=== PATIENT | male | born 1980 | race Two or more races ===

== ENCOUNTER 2024-09-26 14:48 | Inpatient (IN) | payer BC, SELFPAY ==
[2024-09-26] VITALS (15 sets, daily range): BP systolic 181–205; BP diastolic 104–138; PULSE 62–82; RESP 12–22; TEMP 36.3–37.3; O2SAT 91–100; BMI 41.8
--- NOTE | 2024-09-26 15:00 | PC.NURSE ---
PATIENT ARRIVED AT TRIAGE DUE TO NAUSEA AND VOMITING, PATIENT WAS SENT BY [facility] FOR HYPERTENSION. PATIENT WITH COMPLAINT OF DIZZINESS WITH MOVEMENT. PATIENT SITTING IN WAITING ROOM WITH EYES CLOSED DUE TO VOMITING. PATIENT ABLE TO WALK TO TRIAGE ROOM, I CONTACTED DR. PIZANO FOR STROKE EVALUATION. PER DR. PIZANO PATIENT DID NOT MEET STROKE CRITERIA. MEDICATION FOR DIZZINESS WAS PRESCRIBED. PATIENT WAS LEFT IN TRIAGE ROOM WITH WHILE MEDICATION WAS ORDERED. TRIAGE NURSE COULD HEAR PATIENT VOMITING AND ALERTED CHARGE NURSE THAT PATIENTS BP WAS 208/138 AND PATIENT WAS MOVED TO ROOM 1.
--- NOTE | 2024-09-26 15:02 | PD.EDDIZZY ---
ED Dizzyness RME/HPI General Chief Complaint: Dizziness Stated Complaint: DIZZINESS WITH VOMITING Time Seen by Provider: 09/26/24 15:02 Arrival date/time: 09/26/24 14:48 RME / HPI RME / HPI Narrative: 44 year old male with a history of hypertension, currently noncompliant with medications, presents to the ED with dizziness that began yesterday afternoon. He describes the sensation as room spinning, accompanied by nausea and vomiting. Symptoms are worsened with head movement, standing, and walking, and are slightly relieved by closing his eyes. He was evaluated at his clinic earlier today and advised to come to the ED for further evaluation. He denies any recent illness, upper respiratory symptoms, or history of motion sickness. No prior similar episodes reported. Patient reports missing doses of his Losartan due to life . States he took his Losartan yesterday evening and this morning. Additionally reported taking Tylenol and antacids today. Related Data Home Medications ?Medication ?Instructions ?Recorded ?Confirmed losartan 100 mg tablet 100 mg PO DAILY 09/26/24 09/26/24 Allergies Allergy/AdvReac Type Severity Reaction Status Date / Time No Known Allergies Allergy Verified 09/26/24 14:51 Review of Systems Review of Systems Narrative Review of Systems: Gen: No fever, no chills, no weight loss EYES: No discharge, no visual changes, no pain HEENT: No ear pain, no congestion, no sore throat PULM: no shortness of breath, no cough, no congestion CV: No chest pain, no palpitations, no chest tightness GI: +nausea, +vomiting, no diarrhea, no pain, no constipation : No frequency, no urgency,? no dysuria Musc/skel: No joint pain, no back pain Skin: No rash, no ecchymosis, no lesions Neuro: No weakness, no headache, +dizziness Past Medical History Past Medical History CARDIAC: Negative Congestive Heart Failure RESPIRATORY: Negative Chronic Obstructive Pulmonary Disease (COPD) GENITOURINARY: Negative Renal Disease ENDOCRINE: Negative Diabetes Mellitus Type 1 or Diabetes Mellitus Type 2 Social History SMOKING STATUS: Never smoker ED Exam Narrative Physical exam: GENERAL APPEARANCE: AxOx4, no obvious distress, nontoxic appearing HEENT: NC, AT. MMM. Possible sligth sustained rotary nystagmus when looking to the left, dysmetria with looking to the left, sustained nystagmus with looking upwards without worsening dizziness, clear conjunctiva, oropharynx clear. NECK: Supple without lymphadenopathy. No stiffness or restricted ROM. HEART: Normal rate and regular rhythm, normal S1/S1, no m/r/g LUNGS: CTAB, moving air well. No crackles or wheezes are heard. ABDOMEN: Soft, nontender, nondistended with good bowel sounds heard. BACK: No midline C/T/L spine pain or deformity, No CVAT, no obvious deformity. EXTREMITIES: Without cyanosis, clubbing or edema. MUSCULOSKELETAL: FROM of all major joints, no chest tenderness NEUROLOGICAL: Alert and oriented, moving all 4 extremities. CN not formally tested but appear grossly intact. Cannot fully assess gait due to dizziness. Skin: Warm and dry without any rash. Course Quality Measures none Orders Category Date Time Status Admit to Inpatient Status Routine Admission 09/26/24 19:32 Active Patient Condition Routine Admission 09/26/24 19:32 Ordered COVID-19 Screening Questionnaire NOW Care 09/26/24 17:59 Active Decision to Admit X1 Care 09/26/24 17:59 Completed EKG (ED ONLY) *Do not use* NOW Care 09/26/24 16:30 Completed Notify provider NEEDED Care 09/26/24 19:[address] angio stroke protocol Stat Exams 09/26/24 16:[address] head/brain wo con Stat Exams 09/26/24 16:29 Completed EKG (ED Only) Stat Exams 09/26/24 16:30 Draft CBC Stat Lab 09/26/24 16:45 Completed CMP [Comprehensive Metabolic Panel] Stat Lab 09/26/24 16:45 Completed Drug Screen,Urine Stat Lab 09/26/24 17:40 Completed Troponin I Stat Lab 09/26/24 16:45 Completed LORazepam [Ativan Inj] Med 09/26/24 16:30 Discontinued 1 mg IVP X1 ONE Meclizine HCl [Antivert] Med 09/26/24 15:02 Discontinued 50 mg PO X1 ONE Ondansetron Odt [Zofran Odt] Med 09/26/24 16:17 Discontinued 4 mg PO X1 ONE Code Status Routine Oth 09/26/24 19:27 Ordered Reevaluation(s) Reevaluation #1: Patient received 50mg Meclizine at 15:37. At this time states he still feels dizzy. No headache at this time. Plan for CT head and CT angio. Time: 16:25 Reevaluation #2: Patient is still complaining dizziness after the Ativan. Time: 17:50 Vital Signs Vital signs: Vital Signs Temperature 99.1 F 09/26/24 15:10 Pulse Rate 70 09/26/24 15:10 Respiratory Rate 20 09/26/24 15:10 Blood Pressure 204/138 H 09/26/24 15:10 Pulse Oximetry (%) 97 09/26/24 15:10 Oxygen Delivery Method Room Air 09/26/24 15:10 Pulse ox is 97% on room air which is adequate. Dizziness MDM Narrative MDM Narrative:: Mr. Kwok presents to the emergency department with positional room spinning dizziness with associated symptoms that are more consistent with a peripheral vertigo. However exam shows a different story where he has some ocular dysmetria looking to the left with briefly sustained rotary nystagmus. He does have vertical nystagmus when looking upwards. Of curiosity neither of these movements nor nystagmus exacerbate his dizziness. As a trial he for peripheral vertigo he was given meclizine full dose here in the emergency department with little to no improvement in his dizziness. At this point central vertigo becomes a little bit more concerning and workup was initiated for a possible posterior cerebellar CVA. Last known well was approximately 24 hours ago. He is out of the window, no stroke alert was needed. I do feel he needs a stroke workup. As movements exacerbate his dizziness significantly, he was also given Ativan in order to tolerate the CT. On reassessment after Ativan he notes slight improvement of his dizziness he is able to keep his eyes open now. On passive gaze there is no nystagmus, however is noted when he is intently looking at you he does have some brief nonsustained rotary nystagmus. He was able to ambulate to room 1 for his workup with a unsteady, wide-based gait. CT scan of the head was done to assess for acute bleed, which was negative. CT angio for his vertebral circulation was done which shows no dissection, no LVO. He was given full dose aspirin, and hospitalist team was consulted for possible admission for stroke workup and MRI. Carin Stevens am scribing for and in the presence of Dr. Gomes. Patient data External records reviewed:: [facility] previous records (I reviewed ED visit on 08/16/2022 ) Clinical information provided by:: patient Social determinants that could affect healthcare access:: none Patient has the following chronic illnesses:: HTN with medication noncompliance How is presenting disease/condition affected by chronic disease/condition?: exacerbated by Evaluation data The following diagnostics were reviewed and interpreted by me:: lab results, radiology exam(s) and EKG tracing(s) (EKG 09/26/2024 @ 16:39. Sinus bradycardia, rate 59, LVH, no STEMI. ) Lab and/or radiology exams considered but not ordered:: None Interpretation Summary: Ordering Physician: Austin Gomes MD Date of Service: 09/26/24 Procedure(s): CT head/brain wo con Accession Number(s): [id number] cc: Austin Gomes MD; Andrew Booth MD~ Examination: CT brain head without contrast. 2-D sagittal coronal reconstructions Date and time of exam:September 26, 2024 1655 hours INDICATIONS: Dizziness and vomiting beginning last night CTDI: vol (mGy):61 DLP: (mGycm):1321 Technique: Multiple CT axial sections of the brain have been obtained, 5 mm slice thickness. Contrast has not been administered. 2-D sagittal, coronal reconstructions have been obtained Low dose protocols were performed. One or more of the following dose reduction techniques were used; automated exposure control, adjustment of the mA and/or KV according to patient size, use of iterative reconstruction technique. Findings: No significant ventricular enlargement. Intra-axial or extra-axial hemorrhage density is not seen. No mass effect or midline shift Basal cisterns are not remarkable. Fourth ventricle is midline. Cranial vault intact. Old infarct right cerebellar hemisphere Impression: Negative for acute hemorrhage, mass effect or midline shift If symptoms persist, consider brain MRI MRA without contrast follow-up Dictated By:Andrew Booth MD Signed By:<Electronically signed by Andrew Booth MD in [place]>09/26/24 1712 Ordering Physician: Austin Gomes MD Date of Service: 09/26/24 Procedure(s): CT angio stroke protocol Accession Number(s): [id number] cc: Austin Gomes MD; Andrew Booth MD~ Examination: CTA carotids with intravenous contrast CTA brain, head with intravenous contrast. 2-D sagittal, coronal reconstructions. 3-D reconstructions. Exam date and time: September 26, 2024 1657 hours INDICATIONS: Dizziness and vomiting beginning last night CTDI: vol (mGy) 52 DLP: (mGycm) 548 Technique: Multiple CTA axial brain, head carotid images post intravenous contrast injection 100 cc, Isovue-370. 2-D sagittal, coronal reconstructions. 3-D reconstructions, 3-D post processing including vascular maximum intensity projection images. Low dose protocols were performed. One or more of the following dose reduction techniques were used; automated exposure control, adjustment of the mA and/or KV according to patient size, use of iterative reconstruction technique. Findings: No significant common carotid carotid bifurcation or internal carotid artery stenoses Dominant vertebral artery in the neck no significant stenoses No cerebral artery vessel arterial occlusions or thrombus IMPRESSION: No significant neck arterial stenoses No cerebral large vessel arterial occlusions or thrombus Dictated By:Andrew Booth MD Signed By:<Electronically signed by Andrew Booth MD in [place]>09/26/24 1717 Medications / Prescriptions Medications or Prescriptions considered but not ordered:: None Medication administrations:: Medication Administration History Acetaminophen (Acetaminophen 325 Mg Tablet) 650 mg PO Q6H PRN PRN Reason: Fever >101.5 Stop: 10/26/24 19:31 Aspirin (Aspirin Ec 81 Mg Tabec) 81 mg PO QDAY MAYKEL Stop: 10/27/24 08:59 Atorvastatin Calcium (Atorvastatin Calcium 20 Mg Tablet) 80 mg PO HS MAYKEL Stop: 10/26/24 20:59 Last Admin: 09/26/24 20:00 Dose: 80 mg Documented By: WO Sodium Chloride (Ns) 1,000 mls @ 60 mls/hr IV .[id number] MAYKEL Stop: 09/27/24 15:20 Last Admin: 09/26/24 23:48 Dose: 60 mls/hr Documented By: SS Labetalol HCl (Labetalol Inj 5 Mg/Ml Vial 20 Ml) 10 mg IVP Q6H PRN PRN Reason: SBP>220 Stop: 10/26/24 19:44 Meclizine HCl (Meclizine Hcl 25 Mg Tablet) 50 mg PO TID PRN PRN Reason: DIZZINESS Stop: 10/26/24 19:42 Ondansetron HCl (Ondansetron Inj 2 Mg/Ml Inj 2 Ml) 4 mg IVP Q6H PRN; Protocol PRN Reason: NAUSEA OR VOMITING Stop: 10/26/24 19:31 Discontinued Medications Aspirin (Aspirin 325 Mg Tablet) 325 mg PO X1 ONE Stop: 09/26/24 19:38 Last Admin: 09/26/24 19:55 Dose: Not Given Documented By: WO Non-Admin Reason: Discontinued Lorazepam (Lorazepam 2 Mg/Ml Vial) 1 mg IVP X1 ONE Stop: 09/26/24 16:31 Last Admin: 09/26/24 17:43 Dose: 1 mg Documented By: CG Meclizine HCl (Meclizine Hcl 25 Mg Tablet) 50 mg PO X1 ONE Stop: 09/26/24 15:03 Last Admin: 09/26/24 15:37 Dose: 50 mg Documented By: CG Ondansetron HCl (Ondansetron Odt 4 Mg Tabrap) 4 mg PO X1 ONE; Protocol Stop: 09/26/24 16:18 Last Admin: 09/26/24 16:25 Dose: 4 mg Documented By: CG See above Consultations Consultation(s) initiated? (list below): Yes Consultation #1 (Physician, Specialty, Details): I spoke with resident working with Dr. Chaudhry. Discussed patients PMHx, HPI, ED course, exam findings, labs, and radiology results. The hospitalist agree to accept the patient for admission. Time: 17:51 Diagnosis Dizziness Differential Diagnosis: benign paroxysmal positional vertigo, vertebral basilar insufficiency, cerebrovascular accident and transient cerebral ischemia Most likely diagnosis given after review of the tests above:: Ataxia TIA Admission Indicated Admission indicated?: indicated Admission Request Was there a request for admission?: Yes Admission Attestation Admission request attestation: Discussed case with [] from Hospitalist service regarding admission. Discussed patients ED course, exam findings, labs, and radiology results. The Hospitalist [agrees,declines] to accept the patient for admission. Disposition Plan Disposition Plan: Admit Critical Care Time Critical Care Time Critical Care Time: Yes Total Critical Care Time (min.): 35 Attestation: The high probability of sudden, clinically significant deterioration in the patient's condition required the highest level of my preparedness to intervene urgently. The services I provided to this patient were to treat and/or prevent clinically significant deterioration. Services included the following: chart data review, reviewing nursing notes and/or old charts, documentation time, labor relations consultant collaboration regarding findings and treatment options, medication orders and management, direct patient care, vital sign assessments and ordering, interpreting and reviewing diagnostic studies and lab tests. Aggregate critical care time includes only time during which I was engaged in work directly related to the patient's care, as described above, whether at bedside or elsewhere in the Emergency Department. It did not include time spent performing other reported procedures or the services of residents, students, nurses or physician assistants. Discharge Plan Plan Patient Disposition: Admit Acute Care w/in Hospital Problem List Clinical Impression: Ataxia, TIA (transient ischemic attack)
[2024-09-26] MEDS: MECLIZINE HCL 25 MG TABLET 50 MG PO (15:37)
--- NOTE | 2024-09-26 15:38 | PC.NURSE ---
Pt has been noncompliant with HTN meds this past week, was not able to explain why he was noncompliant. Pt given SL Meclizine at this time. Pt continues VERY nauseated. Pt vomited in Triage
[2024-09-26] MEDS: ONDANSETRON ODT 4 MG TABRAP PO (16:25)
--- NOTE | 2024-09-26 16:29 | XR_ITS ---
Examination: CT brain head without contrast. 2-D sagittal coronal reconstructions Date and time of exam:September 26, 2024 1655 hours INDICATIONS: Dizziness and vomiting beginning last night CTDI: vol (mGy):61 DLP: (mGycm):1321 Technique: Multiple CT axial sections of the brain have been obtained, 5 mm slice thickness. Contrast has not been administered. 2-D sagittal, coronal reconstructions have been obtained Low dose protocols were performed. One or more of the following dose reduction techniques were used; automated exposure control, adjustment of the mA and/or KV according to patient size, use of iterative reconstruction technique. Findings: No significant ventricular enlargement. Intra-axial or extra-axial hemorrhage density is not seen. No mass effect or midline shift Basal cisterns are not remarkable. Fourth ventricle is midline. Cranial vault intact. Old infarct right cerebellar hemisphere Impression: Negative for acute hemorrhage, mass effect or midline shift If symptoms persist, consider brain MRI MRA without contrast follow-up
--- NOTE | 2024-09-26 16:30 | XR_ITS ---
Examination: CTA carotids with intravenous contrast CTA brain, head with intravenous contrast. 2-D sagittal, coronal reconstructions. 3-D reconstructions. Exam date and time: September 26, 2024 1657 hours INDICATIONS: Dizziness and vomiting beginning last night CTDI: vol (mGy) 52 DLP: (mGycm) 548 Technique: Multiple CTA axial brain, head carotid images post intravenous contrast injection 100 cc, Isovue-370. 2-D sagittal, coronal reconstructions. 3-D reconstructions, 3-D post processing including vascular maximum intensity projection images. Low dose protocols were performed. One or more of the following dose reduction techniques were used; automated exposure control, adjustment of the mA and/or KV according to patient size, use of iterative reconstruction technique. Findings: No significant common carotid carotid bifurcation or internal carotid artery stenoses Dominant vertebral artery in the neck no significant stenoses No cerebral artery vessel arterial occlusions or thrombus IMPRESSION: No significant neck arterial stenoses No cerebral large vessel arterial occlusions or thrombus
--- NOTE | 2024-09-26 16:30 | EKG_ITS ---
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
[2024-09-26 17:03] LABS: Basophils % (Auto) 0 % (0-2.5); Eosinophils % (Auto) 0 % (0-10); Hematocrit 38.2 % (41.0-53.0); Hemoglobin 11.8 g/dL (13.5-16.0); Immature Granulocytes % (Auto) 0 % (0-0); Immature Granulocytes Auto 0.04 Thou/mm3 (0.00-0.00); Lymphocytes # (Auto) 0.6 Thou/mm3 (1.0-4.8); Lymphocytes % (Auto) 6 % (10-50); Mean Corpuscular HGB Conc 30.9 g/dl (31.0-37.0); Mean Corpuscular Hemoglobin 22.3 pg (25.0-35.0); Mean Corpuscular Volume 72 fL (80-100); Monocytes # (Auto) 0.4 Thou/mm3 (0.0-0.8); Monocytes % (Auto) 4 % (0-12); Neutrophils % (Auto) 90 % (37-80); Nucleated Red Blood Cell % 0 /100 WBC (0); Platelet Count 217 Thou/mm3 (140-440); Red Blood Count 5.29 Miln/mm3 (4.50-5.90); White Blood Count 10.1 Thou/mm3 (3.8-10.6)
[2024-09-26 17:20] LABS: Alanine Aminotransferase 11 U/L (10-49); Albumin, Serum 4.5 gm/dL (3.5-5.0); Albumin/Globulin Ratio 1.6 (1.2-2.2); Alkaline Phosphatase 120 U/L (46-116); Anion Gap 9 (7-16); Aspartate Amino Transferase 21 U/L (0-34); BUN/Creatinine Ratio 9 Ratio (12-20); Bilirubin,Total 0.6 mg/dL (0.3-1.2); Blood Urea Nitrogen 11 mg/dL (9-23); Calcium 9.1 mg/dL (8.3-10.6); Calcium (Corrected) 9.1 mg/dL (8.5-10.1); Carbon Dioxide 29.4 mMol/L (20.0-31.0); Chloride 107 mMol/L (98-107); Creatinine (Component) 1.2 mg/dL (0.6-1.3); Globulin 2.8 gm/dL (2.3-3.5); Glucose 144 mg/dL (74-106); Osmolality,Calculated 291 (275-295); Potassium 4.2 mMol/L (3.4-5.1); Sodium 145 mMol/L (136-145); Total Protein 7.3 gm/dL (5.7-8.2); eGFR > 60 See Note
[2024-09-26] MEDS: LORazepam 2 MG/ML VIAL 1 MG IVP (17:43)
--- NOTE | 2024-09-26 18:11 | PD.RESEVENT ---
Documentation for date of: 09/26/24 Event Note Event Note: Received call for Darwin Kwok, a 44-year-old male with a past medical history of hypertension (noncompliant with medications) who presents with dizziness that started yesterday afternoon that he describes as the room spinning with associated nausea and vomiting. Symptoms exacerbated by head movement, standing, and walking with some relief when closing his eyes. Of note, he was evaluated at his clinic and advised to come to the ED for further evaluation. He has not experienced these symptoms before. While in the ED, patient's initial blood pressure noted to be 204/138, other vital signs stable, and on exam signs of vertical nystagmus observed. CT head and CTA head/neck were ordered for further evaluation that were negative, but in order to lay flat patient was given meclizine 50 mg x1 and lorazepam 1 mg x1 with minimal relief of symptoms. Given sign and symptoms, in-house neurologist was contacted and recommended stroke protocol/work-up but no stroke alert needed given that patient's symptoms started approximately 24 hours ago at this time. However, recommended to allow for permissive hypertension, start IVF, and further evaluate with MRI brain. Patient received loading dose aspirin in ED and at this time neurology recommended holding plavix. Will sign-out to oncoming night team patient case. ----- Plan discussed with attending physician Dr. Isidoro Asher MD PGY-1 Internal Medicine
[2024-09-26 18:19] LABS: Amphetamine/Methamp Scrn,U Negative (Negative); Barbiturate Screen,Urine Negative (Negative); Benzodiazepines Screen,Urine Negative (Negative); Benzoylecgonine Screen, Ur Negative (Negative); Fentanyl Screen,Urine Negative (Negative); Opiate Screen,Urine Negative (Negative); THC Screen,Urine Negative (Negative)
--- NOTE | 2024-09-26 19:37 | ECHO_ITS ---
Transthoracic Echo Report Ht (in): 71 Wt (lb): 300 Exam Location: Echo Lab Status: Emergency Copy Editor: Indications: Procedure Performed: BP: 180 / 109 HR: Technical Quality: Technically Difficult due To Body Habitus- Limited Views MEASUREMENTS (Male / Female) Normal Values 2D ECHO LV Diastolic Diameter PLAX 5.2 cm 4.2 - 5.9 / 3.9 - 5.3 cm LV Systolic Diameter PLAX 3.4 cm IVS Diastolic Thickness 1.5 cm 0.6 - 1.0 / 0.6 - 0.9 cm LVPW Diastolic Thickness 1.4 cm 0.6 - 1.0 / 0.6 - 0.9 cm LV Relative Wall Thickness 0.6 LVOT Diameter 2.4 cm Ascending Aorta Diameter 3.7 cm DOPPLER AV Peak Velocity 141.0 cm/s AV Peak Gradient 8.0 mmHg LVOT Peak Velocity 121.0 cm/s LVOT Peak Gradient 5.9 mmHg AV Area Cont Eq pk 3.9 cm? MV Area PHT 2.6 cm? Mitral E Point Velocity 104.0 cm/s Mitral A Point Velocity 68.9 cm/s Mitral E to A Ratio 1.5 LV E' Lateral Velocity 7.1 cm/s Mitral E to LV E' Lateral Ratio 14.7 LV E' Septal Velocity 5.2 cm/s Mitral E to LV E' Septal Ratio 19.9 PV Peak Velocity 109.0 cm/s PV Peak Gradient 4.8 mmHg FINDINGS Left Ventricle Normal left ventricular size and the wall thickness is moderately increased. The left ventricular systolic function is normal with no obvious regional wall motion abnormalities. Diastolic function can not be reported due to suboptimal acoustic windows. The ejection fraction is visually estimated at 55 %. Right Ventricle The right ventricle not well visualized. Left Atrium The left atrium appears normal. Right Atrium Right atrium is not well visualized. Atrial Septum The interatrial septum appears normal with no evidence of a shunt. Bubble study not performed due to suboptimal acoustic windows. Aorta The aorta is normal by two-dimensional, color flow and Doppler interrogation. Mitral Valve The mitral valve is normal by two-dimensional, color flow and Doppler interrogation. There is no significant mitral valve regurgitation, stenosis or prolapse. Aortic Valve The aortic valve is trileaflet and normal by two-dimensional, color flow and Doppler interrogation. There is no significant aortic valve regurgitation. Tricuspid Valve The tricuspid valve is not well visualized. There is no significant tricuspid valve regurgitation. Pulmonic Valve The pulmonic valve is not well visualized. There is no significant pulmonic valve regurgitation. Vessels The pulmonary artery appears normal. The inferior vena cava pulmonary and hepatic veins appear normal. Pericardium The pericardium is normal by two-dimensional imaging. There is no significant pericardial effusion. CONCLUSIONS Indications: CVA Normal LV size and function with an estimated EF of 55 to 60%. Moderate concentric poorly visualized RV LVH. Grade 1 diastolic dysfunction. Normal RV size and function. Overall RV not visualized along with the TR. Poor images and technically difficult study due to body habitus. Blane Massey (Electronically Signed) Final Date: 27 September 2024 18:39
--- NOTE | 2024-09-26 19:46 | ESHP_ITS ---
Documentation for date of: 09/26/24 HPI History of Present Illness Chief complaint: Dizziness History of present illness: 44-year-old male with past medical history of hypertension, history of medication noncompliance presented to the ED due to dizziness. Symptom onset was 09/25/2024 afternoon after shaving patient noticed that the room was spinning associated with nausea and 5 episodes of vomiting. Patient went to a clinic and was found with elevated blood pressure systolic around the 220s and was sent to the ER. Patient states symptoms get better if he keeps his eyes closed and does not move. Symptoms get worse when the patient does any kind of movement. Patient also endorses fatigue and headache since yesterday as well. In the ER blood pressure was noted to be in the 200s and signs of vertical nystagmus were observed. CT head and CTA head and neck were ordered found to be negative. To have the imaging studies done patient was given meclizine and lorazepam with minimal relief in symptoms. In-house neurology was contacted and recommended admission for stroke protocol/workup. Neurology also recommended permissive hypertension, IV fluids and MRI brain study. ED course: ED vitals: BP 204/138, HR 70, RR 20, temp 99.1, saturating 87% on room air ED labs: Iron deficiency anemia, glucose 144, A1c 6.3, alk phos 120 U-Tox negative In the ED patient received loading dose of aspirin, meclizine, Zofran PMHx: As above SX Hx: None Social Hx: Denies smoking, denies alcohol use, denies illicit substances including THC FHX: Diabetes and high blood pressure mother and father Review of Systems Review of Systems Systems Reviewed: All systems reviewed, normal except as documented Narrative Review of Systems: All 12 systems reviewed and found normal unless otherwise stated in the HPI Exam Vital Signs Temp Pulse Resp BP Pulse Ox O2 Del Method 97.7 F 82 17 181/104 H 93 L Room Air 09/26/24 16:19 09/26/24 18:30 09/26/24 18:30 09/26/24 18:30 09/26/24 18:30 09/26/24 16:19 Narrative Exam Physical Exam GENERAL: NAD, AAOx3, obese HEENT: Moist mucosa. Eyes open, symmetrical, & clear CARDIO: Heart RRR, no obvious murmurs PULM: No noted coughing/dyspnea CTA B/L, no R/W/R GI: Abdomen soft, nondistended, no pain on palpation. BSx4 SKIN/MSK/EXT: No wounds/rashes/edema/amputations, no pain on palpation. Pedal pulses present B/L NEURO: AAOx3, able to move all 4 extremities, strength and sensation intact, vertical nystagmus noted Results: Labs 09/26/24 16:45 09/26/24 16:45 Labs: Short CBC 09/26/24 Range/Units 16:45 WBC 10.1 (3.8-10.6) Thou/mm3 Hgb 11.8 L (13.5-16.0) g/dL Hct 38.2 L (41.0-53.0) % Plt Count 217 (140-440) Thou/mm3 BMP 09/26/24 16:45 Sodium 145 Potassium 4.2 Chloride 107 Carbon Dioxide 29.4 BUN 11 Creatinine 1.2 Glucose 144 H Calcium 9.1 Cardiac Enzymes 09/26/24 Range/Units 16:45 Troponin I 0.040 (0.0-0.045) ng/mL Liver Function 09/26/24 Range/Units 16:45 Total Bilirubin 0.6 (0.3-1.2) mg/dL AST 21 (0-34) U/L ALT 11 (10-49) U/L Alkaline Phosphatase 120 H (46-116) U/L Albumin 4.5 (3.5-5.0) gm/dL Quality Measures Quality Measures none Medications Home Medications and Allergies Home Medications ?Medication ?Instructions ?Recorded ?Confirmed ?Type losartan 100 mg tablet 100 mg PO DAILY 09/26/2405/22 History Allergies Allergy/AdvReac Type Severity Reaction Status Date / Time No Known Allergies Allergy Verified 09/26/24 14:51 Visit Medications Acetaminophen (Acetaminophen 325 Mg Tablet) 650 mg PO Q6H PRN PRN Reason: Fever >101.5 Stop: 10/26/24 19:31 Aspirin (Aspirin 325 Mg Tablet) 325 mg PO X1 ONE Stop: 09/26/24 19:38 Aspirin (Aspirin Ec 81 Mg Tabec) 81 mg PO QDAY MAYKEL Stop: 10/27/24 08:59 Atorvastatin Calcium (Atorvastatin Calcium 20 Mg Tablet) 80 mg PO HS MAYKEL Stop: 10/26/24 20:59 Labetalol HCl (Labetalol Inj 5 Mg/Ml Vial 20 Ml) 10 mg IVP Q6H PRN PRN Reason: SBP>220 Stop: 10/26/24 19:44 Meclizine HCl (Meclizine Hcl 25 Mg Tablet) 50 mg PO TID PRN PRN Reason: DIZZINESS Stop: 10/26/24 19:42 Ondansetron HCl (Ondansetron Inj 2 Mg/Ml Inj 2 Ml) 4 mg IVP Q6H PRN; Protocol PRN Reason: NAUSEA OR VOMITING Stop: 10/26/24 19:31 Discontinued Medications Lorazepam (Lorazepam 2 Mg/Ml Vial) 1 mg IVP X1 ONE Stop: 09/26/24 16:31 Last Admin: 09/26/24 17:43 Dose: 1 mg Meclizine HCl (Meclizine Hcl 25 Mg Tablet) 50 mg PO X1 ONE Stop: 09/26/24 15:03 Last Admin: 09/26/24 15:37 Dose: 50 mg Ondansetron HCl (Ondansetron Odt 4 Mg Tabrap) 4 mg PO X1 ONE; Protocol Stop: 09/26/24 16:18 Last Admin: 09/26/24 16:25 Dose: 4 mg Assessment & Plan Plan 44-year-old male with past medical history of hypertension, history of medication noncompliance presented to the ED due to dizziness. #CVA workup #nystagmus Patient symptom onset more than 24 hours ago, is reporting dizziness that comes and goes only relieved by closing his eyes and not moving In-house neurology was consulted and recommended admission for CVA workup, possible brainstem lesion Received loading dose of aspirin in the ER Head CT and head/neck CTA negative, however head CT does show old infarct in right cerebellar hemisphere, patient has no knowledge of this In-house neurologist was contacted and recommended stroke protocol/work-up but no stroke alert needed given that patient's symptoms started approximately 24 hours ago at this time ? BP goal systolic 185, permissive hypertension ? Pending MRI brain ? Echo with bubble study ? Neurology consulted, appreciate recommendations ? Aspirin 81 mg ? High intensity statin ? Neurochecks every 4 hours ? Euglycemia ? IV fluids ? Head of bed more than 30 ? Aspiration precautions ? Labetalol 10 mg IV every 6 hours for systolic blood pressure more than 220 ? Physical therapy ordered ? Speech eval ordered ? Nurse swallow screen ordered #Hypertension Permissive hypertension for the next 24 hours Health Maintenance: Disposition: Telemetry, CVA workup Fluids: NS Feeding: N.p.o. till swallow screen Thrombo prophylaxis: SCDs Gastric Ulcer prophylaxis: None CODE STATUS: Full code Case discussed with my attending Dr. Akash Rea MD PGY-1 Attending Provider Attestation/Addendum I have examined the patient, reviewed labs and imaging findings, discussed the case with the resident(s), and reviewed entered orders. I agree with the plan of care as outlined in this note, with these additional summaries/recommendations: After examination of the patient and review of the clinical data, I feel that this patient needs admission to the hospital for further treatment and evaluation. Patient is a 44-year-old male with a medical history of primary hypertension, obesity, and prediabetes who presents to [facility] emergency department on 09/26/2024 with chief complaints of dizziness and nausea plus vomiting. Patient seen at bedside. He endorses mild headache and dizziness with minor improvement after receiving meclizine and Ativan. He reports symptoms started over 24 hours ago. Patient will be admitted for CVA rule out. In-house neurology was consulted and no need for stroke alert given the length of patient's symptoms. Head CT was negative for acute hemorrhage, mass effect or midline shift but did reveal old infract right cerebral hemisphere. CTA did not show any significant arterial stenosis or LVO. Patient unsure if he has had a stroke before although he is relatively uninterested in providing history. Order MRI brain and echocardiogram with bubble study. Risks factor stratification with A1c, TSH, and lipid panel. Refer to speech therapy and physical therapy. Differentials for patient's vertigo is subacute CVA versus BPPV versus M?ni?re's versus hypertensive emergency. Status post loading dose aspirin in ED. Start aspirin 81 mg p.o. daily and high intensity statin. Continue meclizine for dizziness and monitor for improvement. Fall precautions. We will allow permissive hypertension overnight and initiate hypertensives in AM. As needed Zofran for nausea. Patient has a history of prediabetes and repeat A1c ordered. If elevated we will start insulin sliding scale and target blood sugar 140-180 while hospitalized. Patient also noted to have microcytic anemia on hematology panel and can follow-up outpatient for further workup and management. Patient updated on the plan and in agreement. All questions answered to satisfaction. Please see residents note for additional details and management. Dr. Akash MD
[2024-09-26] MEDS: ATORVASTATIN CALCIUM 20 MG TABLET 80 MG PO (20:00)
[2024-09-26 21:37] LABS: Glucose Estimated Average 134 mg/dL (80-131); Hemoglobin A1C 6.3 % Hgb (4.8-6.0)
[2024-09-26] MEDS: SODIUM CHLORIDE 0.9% 1000 ML 1,000 ML 60 ML IV (23:48)
[2024-09-27] VITALS (13 sets, daily range): BP systolic 160–188; BP diastolic 96–111; PULSE 55–97; RESP 15–95; TEMP 36.1–37.2; O2SAT 92–99; BMI 41.1
--- NOTE | 2024-09-27 | XR_ITS ---
Examination: MRI brain without intravenous contrast. Date and time of exam: September 27, 2024 1643 hours INDICATIONS: Dizziness vomiting hypertension beginning 2 days ago Technique: Multiple axial and sagittal images of the brain obtained. Siemens high-resolution 1.5 Clementine short bore scanners utilized. Sagittal sections, T1-weighted, TR 500, TE 14, are performed. Axial sections proton-density and T2-weighted have been obtained. Inversion recovery axial images, TR 9, 260, TE 111, TI 2500. Diffusion weighted images, axial sections, TR 4800, TE 128, B value 1000 Axial sections, ADC map, TR 4800, TE 128 Findings: Enlargement of the sella turcica is not present. The optic chiasm and infundibular are not remarkable. Prepontine and interpeduncular cisterns are not enlarged. There is no localized enlargement of the medulla or carmelita. Fourth ventricle and cerebellar tonsils appear normal in position. No subacute area of hemorrhage density is seen. Mass in the cerebellopontine angle region is not evident. Globes symmetrical. Orbital musculature including medial lateral rectus muscles do not exhibit abnormality. Diffusion-weighted images demonstrate no focus of restricted diffusion. Increased white matter signal evident, old infarct right cerebellar hemisphere Scattered punctate foci of increased signal in the white matter on the FLAIR images Significant chronic ethmoid sinusitis Mass effect upon the ventricular system is not identified. Impression: Negative for acute hemorrhage mass effect or midline shift. No acute infarct Old infarct right cerebellar hemisphere Scattered punctate foci increased signal in the white matter demyelinating disease pattern
[2024-09-27 05:33] LABS: Basophils % (Auto) 0 % (0-2.5); Eosinophils # (Auto) 0.2 Thou/mm3 (0.0-0.5); Eosinophils % (Auto) 3 % (0-10); Hematocrit 34.2 % (41.0-53.0); Hemoglobin 10.7 g/dL (13.5-16.0); Immature Granulocytes % (Auto) 0 % (0-0); Immature Granulocytes Auto 0.01 Thou/mm3 (0.00-0.00); Lymphocytes # (Auto) 1.5 Thou/mm3 (1.0-4.8); Lymphocytes % (Auto) 20 % (10-50); Mean Corpuscular HGB Conc 31.3 g/dl (31.0-37.0); Mean Corpuscular Hemoglobin 22.1 pg (25.0-35.0); Mean Corpuscular Volume 71 fL (80-100); Monocytes # (Auto) 0.6 Thou/mm3 (0.0-0.8); Monocytes % (Auto) 8 % (0-12); Neutrophils # (Auto) 5.1 Thou/mm3 (1.8-7.7); Neutrophils % (Auto) 69 % (37-80); Nucleated Red Blood Cell % 0 /100 WBC (0); Platelet Count 177 Thou/mm3 (140-440); RDW Standard Deviation 35.8 fL (35.1-43.9); Red Blood Count 4.84 Miln/mm3 (4.50-5.90); White Blood Count 7.4 Thou/mm3 (3.8-10.6)
[2024-09-27 06:00] LABS: Alanine Aminotransferase 10 U/L (10-49); Albumin/Globulin Ratio 1.6 (1.2-2.2); Anion Gap 8 (7-16); Aspartate Amino Transferase 18 U/L (0-34); BUN/Creatinine Ratio 9 Ratio (12-20); Bilirubin,Total 0.6 mg/dL (0.3-1.2); Blood Urea Nitrogen 11 mg/dL (9-23); Calcium 8.6 mg/dL (8.3-10.6); Calcium (Corrected) 8.6 mg/dL (8.5-10.1); Chloride 106 mMol/L (98-107); Cholesterol 157 mg/dL (132-200); Creatinine (Component) 1.2 mg/dL (0.6-1.3); Globulin 2.5 gm/dL (2.3-3.5); Glucose 84 mg/dL (74-106); HDL Cholesterol 31 mg/dL (40-60); Magnesium 1.9 mg/dL (1.6-2.6); Osmolality,Calculated 285 (275-295); Phosphorous 3.9 mg/dL (2.4-5.1); Potassium 3.4 mMol/L (3.4-5.1); Sodium 144 mMol/L (136-145); Total Protein 6.5 gm/dL (5.7-8.2); Triglycerides 107 mg/dL (30-150); eGFR > 60 See Note
[2024-09-27 06:01] LABS: Alkaline Phosphatase 106 U/L (46-116); Cardiac Risk Estimate 5.1 RATIO (4.0-6.7); LDL Cholesterol,Calculated 105 mg/dL (0-130); Thyroid Stimulating Hormone 0.43 uIU/mL (0.55-4.78)
[2024-09-27] MEDS: ASPIRIN EC 81 MG TABEC PO (08:19)
[2024-09-27] MEDS: LOSARTAN POTASSIUM 25 MG TABLET 100 MG PO (08:19)
--- NOTE | 2024-09-27 10:23 | ESPR_ITS ---
<Statement entered by Cody Chaudhry MD - 10/01/24 14:49> I reviewed above note and agree with findings and plans. I have also personally examined the patient with medicine team and went over assessment and plan with medical team including inclusion internship and resident physician. Documentation for date of: 09/27/24 Subjective Subjective Interval history: Overnight admission. Seen and examined at bedside and patient states that his symptoms have greatly improved as he is able to keep his eyes open without significant symptoms. He was able to walk to the restroom without significant difficulties. Otherwise, he has no complaints and updated on current plan for MRI and echo. Blood pressure continues to be elevated and spoke to neurology who recommended to start treating hypertension given that patient's symptoms started over 24 hours ago, so resumed home losartan 100 mg p.o. daily. Other vital signs stable, CBC showed mild microcytic anemia and will require outpatient work-up. Exam Vital Signs Temp Pulse Resp BP Pulse Ox O2 Del Method 98.1 F 71 20 180/109 H 92 L Room Air 09/27/24 08:00 09/27/24 08:19 09/27/24 08:00 09/27/24 08:19 09/27/24 08:00 09/27/24 08:00 Narrative Exam General: AOx3, no acute distress, able to speak full sentences HEENT: NC/AT, mucous membranes moist, bilateral sclera anicteric Cardiovascular: regular rate and rhythm, S1/S2 present, no murmurs appreciated Pulmonary: clear to auscultation bilaterally, no rales/rhonchi/wheezes Abdominal: soft, non-tender, non-distended, no rebound/guarding, normal bowel sounds present Musculoskeletal: normal ROM, no peripheral edema Skin: warm and dry, intact, no rashes Neuro: CN II-XII intact, no focal deficits Objective Labs 09/27/24 05:05 09/27/24 05:05 Labs: Laboratory Results - last 24 hr 09/26/24 09/26/24 09/27/24 16:45 17:40 05:05 WBC 10.1 7.4 RBC 5.29 4.84 Hgb 11.8 L 10.7 L Hct 38.2 L 34.2 L MCV 72 L 71 L MCH 22.3 L 22.1 L MCHC 30.9 L 31.3 RDW Std Deviation 36.0 35.8 Plt Count 217 177 D Neut % (Auto) 90 H 69 Lymph % (Auto) 6 L 20 Edgar % (Auto) 4 8 Eos % (Auto) 0 3 Baso % (Auto) 0 0 Neut # (Auto) 9.0 H 5.1 Lymph # (Auto) 0.6 L 1.5 Edgar # (Auto) 0.4 0.6 Eos # (Auto) 0.0 0.2 Baso # (Auto) 0.0 0.0 Immature Gran # (Auto) 0.04 H 0.01 H Absolute Nucleated RBC 0.00 0.00 Immature Gran % 0 0 Nucleated RBC % 0 0 Sodium 145 144 Potassium 4.2 3.4 D Chloride 107 106 Carbon Dioxide 29.4 30.0 Anion Gap 9 8 BUN 11 11 Creatinine 1.2 1.2 Estim Creat Clear Calc 113.0 113.0 eGFR > 60 > 60 BUN/Creatinine Ratio 9 L 9 L Glucose [address] Glu mg/dL 134 H Hemoglobin A1c 6.3 H Calculated Osmolality 291 285 Calcium 9.1 8.6 Corrected Calcium 9.1 8.6 Phosphorus 3.9 Magnesium 1.9 Total Bilirubin 0.6 0.6 AST 21 18 ALT 11 10 Alkaline Phosphatase 120 H 106 Troponin I 0.040 Total Protein 7.3 6.5 Albumin 4.5 4.0 D Globulin 2.8 2.5 Albumin/Globulin Ratio 1.6 1.6 Triglycerides 107 Cholesterol 157 LDL Cholesterol, Calc 105 HDL Cholesterol 31 L Cholesterol/HDL Ratio 5.1 TSH 0.43 L Urine Opiates Screen Negative Urine Fentanyl Screen Negative Ur Barbiturates Screen Negative U Amphetamin/Meth Scrn Negative U Benzodiazepines Scrn Negative U Cocaine Metab Screen Negative U Marijuana (THC) Screen Negative Quality Measures Quality Measures none Assessment & Plan Assessment Current Active Medications: Generic Name Dose Route Start Last Admin Trade Name Freq PRN Reason Stop Dose Admin Acetaminophen 650 mg 09/26/24 19:32 Acetaminophen 325 Mg Tablet PO 10/26/24 19:31 Q6H PRN Fever >101.5 Aspirin 81 mg 09/27/24 09:00 09/27/24 08:19 Aspirin Ec 81 Mg Tabec PO 10/27/24 08:59 81 mg QDAY MAYKEL Administration Atorvastatin Calcium 80 mg 09/26/24 21:00 09/26/24 20:00 Atorvastatin Calcium 20 Mg Tablet PO 10/26/24 20:59 80 mg HS MAYKEL Administration Sodium Chloride 1,000 mls @ 60 mls/hr 09/26/24 22:41 09/26/24 23:48 Ns IV 09/27/24 15:20 60 mls/hr .[id number] MAYKEL Administration Labetalol HCl 10 mg 09/26/24 19:37 Labetalol Inj 5 Mg/Ml Vial 20 Ml IVP 10/26/24 19:44 Q6H PRN SBP>220 Losartan Potassium 100 mg 09/27/24 09:00 09/27/24 08:19 Losartan Potassium 25 Mg Tablet PO 10/27/24 08:59 100 mg DAILY MAYKEL Administration Meclizine HCl 50 mg 09/26/24 19:43 Meclizine Hcl 25 Mg Tablet PO 10/26/24 19:42 TID PRN DIZZINESS Ondansetron HCl 4 mg 09/26/24 19:32 Ondansetron Inj 2 Mg/Ml Inj 2 Ml IVP 10/26/24 19:31 Q6H PRN NAUSEA OR VOMITING Protocol Plan Darwin Kwok is a 44-year-old male with a past medical history of primary hypertension, obesity, and prediabetes who presented to [facility] on 09/26 with chief complaint of dizziness that started on the evening of 09/25. #Vertigo, peripheral versus central #TIA versus stroke Symptom started on 09/24 1 in the evening and presented approximate 24 hours after symptom onset. Sudden onset in nature and reported room is spinning and was partially relieved when closing his eyes in the beginning but since then symptoms have improved. Received loading dose of aspirin in ED, CT head and CTA head/neck negative for acute pathologies but an old infarct in right cerebellar hemisphere is seen. ? Neurology following, appreciate recommendations ? No longer allowing for permissive hypertension, goal SBP of 160 ? Labetalol 10 mg IV every 6 hours as needed ? Aspirin 81 mg daily, high intensity statin daily ? MRI and echo ? PT and speech eval ordered #History of hypertension #Hypertensive emergency evidenced by vertigo ? No longer allowing for permissive hypertension ? Losartan 100 mg p.o. daily ? Nifedipine 10 mg p.o. x 1 ? Labetalol 10 mg IV every 6 hours as needed Hospital management: Disposition: Pending MRI and echo Fluids: Not indicated Diet: Vegan Lines: PIV DVT prophylaxis: SCDs CODE STATUS: full code ----- Plan discussed with attending physician Dr. Isidoro Asher MD PGY-1 Internal Medicine
--- NOTE | 2024-09-27 12:43 | PC.PT ---
PT eval only. Patient is xI and at his PLOF. Patient is safe to ambulate in his room and to the bathroom with no DME or staff assist. Patient will need staff assist in the halls for safety due to his prior episodes of dizziness which brought him to the hospital but no DME. RN made aware.
[2024-09-27 13:51] LABS: Free T4 (Free Thyroxine) 1.03 ng/dL (0.89-1.76)
--- NOTE | 2024-09-27 14:23 | PC.SS ---
Darwin Kwok is a 44-year-old male admitted to [facility] for Dizziness. SS conducted bedside contact with the patient to complete initial assessment and to discuss discharge planning. Role and reason explained. Patient confirmed demographic information. Patient identifies his Melvina Kwok [phone] as his surrogate decision maker. Pt states he is able to complete all ADL?s independent. Pt does not possesses any DME. Pts PCP Dr. Og Garrison. Pharmacy of choice is [facility]. Discharge options discussed and the pt wishes to return home.? Pt family will provide transport at the time of DC. No further intervention required at this time, social services counselor would be available to address any further concerns. DC Plan: Home Contact: Melvina Kwok [phone] Address: Confirmed on face sheet PCP: Meli Juarez
--- NOTE | 2024-09-27 14:23 | PC.SS ---
Rounding: Pending Neuro reccs, MRI and ECHO
[2024-09-27] MEDS: NIFEdipine 10 MG CAPSULE PO (14:41)
--- NOTE | 2024-09-27 16:20 | PC.NURSE ---
Notified Dr. Asher, pt's BP 164/109, P65. New orders received.
--- NOTE | 2024-09-27 17:47 | PC.NURSE ---
Around 1200, industrial technician came by, pt start eating lunch, tech said she would come back and did not return. Dr. Asher made aware.
[2024-09-27] MEDS: ATORVASTATIN CALCIUM 20 MG TABLET 80 MG PO (20:48)
[2024-09-27] MEDS: LABETALOL INJ 5 MG/ML VIAL 20 ML 10 MG IVP (20:52)
--- NOTE | 2024-09-27 22:36 | PD.NEUROPROG ---
Documentation for date of: 09/27/24 Subjective Subjective Interval history: Patient was seen in telemetry today with his family at the bedside, no recurrent symptoms of headache dizziness vertigo reported. Exam - Neurology Vital Signs Temp Pulse Resp BP Pulse Ox O2 Del Method 98.8 F 78 21 H 172/107 H 99 Room Air 09/27/24 20:00 09/27/24 20:52 09/27/24 20:00 09/27/24 20:52 09/27/24 20:00 09/27/24 20:00 Narrative Exam GENERAL APPEARANCE:, Obese built male in no acute distress. HEENT: Normocephalic, atraumatic, extraocular movements intact. Pupils: Equal reacting to light and accommodation NECK: Supple, no JVD or bruits. CARDIOVASULAR: Heart: S1, S2 heard, regular without S3-S4 or murmur no rubs or gallops. LUNGS/CHEST: Clear to auscultation bilaterally. No rails, rhonchi, or wheezing. Normal inspection. ABDOMEN: Soft, nontender, with normal bowel sounds. No pulsatile masses. No rebound, rigidity, or guarding. Normal inspection and palpation. EXTREMITIES: Normal inspection and palpation. No edema, clubbing or cyanosis. SKIN: Warm and dry without rashes. Normal inspection. MUSCULOSKELETAL: No cervical, thoracic, lumbar or midline bony tenderness. Normal inspection. NEURO: Alert, awake and oriented x3. Cranial nerves: II through XII grossly intact. Speech and language: Normal with no dysarthria or dysphasia. Motor system: Tone and bulk: Normal: Strength: 5 out of 5 in all 4 extremities; No pronator drift noted. Deep tendon reflexes: 2+ bilaterally symmetrical. Plantar reflex: Downgoing bilaterally. Sensory system: Intact to all modalities of sensation bilaterally. Coordination: Intact to [id number] and [id number]-[id number] test bilaterally. No ataxia, no dysmetria, or dysdiadochokinesia noted. No intention tremors noted. Gait: Normal. Toe, heel, tandem walk all are normal. Romberg: Negative. No signs of meningeal irritation noted. PSYCHIATRIC: Normal mood and affect. Objective Labs 09/27/24 05:05 09/27/24 05:05 Labs: Laboratory Results - last 24 hr 09/27/24 05:05 WBC 7.4 RBC 4.84 Hgb 10.7 L Hct 34.2 L MCV 71 L MCH 22.1 L MCHC 31.3 RDW Std Deviation 35.8 Plt Count 177 D Neut % (Auto) 69 Lymph % (Auto) 20 [place] % (Auto) 8 Eos % (Auto) 3 Baso % (Auto) 0 Neut # (Auto) 5.1 Lymph # (Auto) 1.5 [place] # (Auto) 0.6 Eos # (Auto) 0.2 Baso # (Auto) 0.0 Immature Gran # (Auto) 0.01 H Absolute Nucleated RBC 0.00 Immature Gran % 0 Nucleated RBC % 0 Sodium 144 Potassium 3.4 D Chloride 106 Carbon Dioxide 30.0 Anion Gap 8 BUN 11 Creatinine 1.2 Estim Creat Clear Calc 113.0 eGFR > 60 BUN/Creatinine Ratio 9 L Glucose 84 D Calculated Osmolality 285 Calcium 8.6 Corrected Calcium 8.6 Phosphorus 3.9 Magnesium 1.9 Total Bilirubin 0.6 AST 18 ALT 10 Alkaline Phosphatase 106 Total Protein 6.5 Albumin 4.0 D Globulin 2.5 Albumin/Globulin Ratio 1.6 Triglycerides 107 Cholesterol 157 LDL Cholesterol, Calc 105 HDL Cholesterol 31 L Cholesterol/HDL Ratio 5.1 TSH 0.43 L Free T4 1.03 Assessment & Plan Assessment and plan (1) TIA (transient ischemic attack): Status: Acute Assessment and plan: Reassurance given to the patient regarding the negative MRI brain for acute infarction. Scattered white matter changes are consistent with a small vessel disease rather than demyelinating pattern. Continue with aspirin and statin. Keep the blood pressure under control. (2) Ataxia: Status: Resolved Assessment and plan: Reassurance given to the patient regarding the negative workup. MRI brain showed infarct in the right cerebellar hemisphere continue with aspirin and statin (3) Hypertension: Status: Chronic Assessment and plan: Resume his home antihypertensives.
[2024-09-28] VITALS (9 sets, daily range): BP systolic 144–179; BP diastolic 88–111; PULSE 67–76; RESP 15–96; TEMP 36.2–37.4; O2SAT 95–100; BMI 41.5
[2024-09-28 05:55] LABS: Basophils % (Auto) 1 % (0-2.5); Eosinophils # (Auto) 0.2 Thou/mm3 (0.0-0.5); Eosinophils % (Auto) 3 % (0-10); Hematocrit 33.7 % (41.0-53.0); Hemoglobin 10.6 g/dL (13.5-16.0); Immature Granulocytes % (Auto) 0 % (0-0); Immature Granulocytes Auto 0.02 Thou/mm3 (0.00-0.00); Lymphocytes # (Auto) 1.3 Thou/mm3 (1.0-4.8); Lymphocytes % (Auto) 19 % (10-50); Mean Corpuscular HGB Conc 31.5 g/dl (31.0-37.0); Mean Corpuscular Hemoglobin 22.3 pg (25.0-35.0); Mean Corpuscular Volume 71 fL (80-100); Monocytes # (Auto) 0.5 Thou/mm3 (0.0-0.8); Monocytes % (Auto) 7 % (0-12); Neutrophils % (Auto) 71 % (37-80); Nucleated Red Blood Cell % 0 /100 WBC (0); Platelet Count 200 Thou/mm3 (140-440); Red Blood Count 4.76 Miln/mm3 (4.50-5.90)
[2024-09-28] MEDS: LABETALOL INJ 5 MG/ML VIAL 20 ML 10 MG IVP (05:56)
[2024-09-28 06:32] LABS: Alanine Aminotransferase 11 U/L (10-49); Albumin/Globulin Ratio 1.6 (1.2-2.2); Alkaline Phosphatase 107 U/L (46-116); Anion Gap 8 (7-16); Aspartate Amino Transferase 19 U/L (0-34); BUN/Creatinine Ratio 8 Ratio (12-20); Bilirubin,Total 0.6 mg/dL (0.3-1.2); Blood Urea Nitrogen 9 mg/dL (9-23); Calcium 8.5 mg/dL (8.3-10.6); Calcium (Corrected) 8.5 mg/dL (8.5-10.1); Carbon Dioxide 31.9 mMol/L (20.0-31.0); Chloride 106 mMol/L (98-107); Creatinine (Component) 1.1 mg/dL (0.6-1.3); Estimated Creatinine Clearance 122.8 mL/min (>60); Globulin 2.5 gm/dL (2.3-3.5); Glucose 100 mg/dL (74-106); Magnesium 1.8 mg/dL (1.6-2.6); Osmolality,Calculated 289 (275-295); Phosphorous 3.5 mg/dL (2.4-5.1); Potassium 3.7 mMol/L (3.4-5.1); Sodium 146 mMol/L (136-145); Total Protein 6.5 gm/dL (5.7-8.2); eGFR > 60 See Note
[2024-09-28] MEDS: NIFEdipine XL 30 MG TABCR PO (08:31)
[2024-09-28] MEDS: LOSARTAN POTASSIUM 25 MG TABLET 100 MG PO (08:31)
[2024-09-28] MEDS: ASPIRIN EC 81 MG TABEC PO (08:33)
--- NOTE | 2024-09-28 09:36 | PC.SS ---
SS follow up note; Patient will dischage home today.
--- NOTE | 2024-09-28 11:19 | ESDS_ITS ---
<Statement entered by Cody Chaudhry MD - 10/03/24 09:32> I reviewed above note and agree with findings and plans. I have also personally examined the patient with medicine team and went over assessment and plan with medical team including auditor internal and resident physician. Planned Discharge Date 09/28/24 DS: Providers Provider Date of admission: 09/26/24 19:32 Primary care physician: Physician No Primary/Family Admitting Provider: Gabriel Bustos MD Attending Provider on Admission: Cody Chaudhry MD Consults: 09/26/24 19:42 Consult to Neurology / Tele-Neurology Stat Comment: Consulting Provider: Vasquez Mosquera 09/26/24 19:43 Referral Physical Therapy Routine Comment: Physician Instructions: Referral Speech Therapy Routine Comment: Attending Provider on DC: Robert Asher MD Discharging Provider: Robert Asher MD DS: Diagnosis Problem List Completed Was Problem List Reviewed/Reconciled?: Yes Hospital Course Hospital Course Hospital course: Darwin Kwok is a 44-year-old male with a past medical history of hypertension (noncompliant with medications) who presents with dizziness that started in afternoon prior to presentation and described it as room spinning with associated nausea and vomiting. Symptoms exacerbated by head movement, standing, and walking with some relief when closing his eyes. Of note, he was evaluated at his clinic and advised to come to the ED for further evaluation. He has not experienced these symptoms before. While in the ED, patient's initial blood pressure noted to be 204/138, other vital signs stable, and on exam signs of vertical nystagmus observed. CT head and CTA head/neck were ordered for further evaluation that were negative, but in order to lay flat patient was given meclizine 50 mg x1 and lorazepam 1 mg x1 with minimal relief of symptoms. Given sign and symptoms, in-house neurologist was contacted and recommended stroke protocol/work-up but no stroke alert needed given that patient's symptoms started approximately 24 hours ago at this time. Recommended to further evaluate with MRI brainwhich revealed an old infarct in the right cerebral hemisphere but no acute findings. Echo also obtained did not show any significant abnormalities. Given that patient's symptoms had resolved and MRI findings unremarkable for anything acute, patient was deemed stable for discharge with close follow-up with neurology and PCP for further management and evaluation of his hypertension. [facility] discharge instructions for further details. Diagnoses during admission: #Vertigo, peripheral versus central #History of stroke #History of hypertension #Hypertensive emergency evidenced by vertigo Discharge instructions: ? You've been started on aspirin and atorvastatin to prevent further strokes ? You've been started on nifedipine to help control your blood pressure ? Continue taking all other home medications as prescribed ? Follow-up with neurologist, Dr. Mosquera, within 1-2 weeks of discharge ? Follow-up with PCP within 1-2 weeks of discharge and obtain referral for a sleep study ? Recommend referral to [facility] for further evaluation/work-up of hypertension ? Return to ED if symptoms worsen or recur ----- Plan discussed with attending physician Dr. Isidoro Asher MD PGY-1 Internal Medicine Time Spent with Patient Time attestation: Total time spent providing and/or coordinating discharge services: Time spent: Greater than 30 minutes Exam Vital Signs Temp Pulse Resp BP Pulse Ox O2 Del Method 97.6 F 76 18 173/110 H 100 Room Air 09/28/24 08:00 09/28/24 08:31 09/28/24 08:02 09/28/24 08:31 09/28/24 08:00 09/28/24 08:00 Narrative Exam General: AOx3, no acute distress, able to speak full sentences HEENT: NC/AT, mucous membranes moist, bilateral sclera anicteric Cardiovascular: regular rate and rhythm, S1/S2 present, no murmurs appreciated Pulmonary: clear to auscultation bilaterally, no rales/rhonchi/wheezes Abdominal: soft, non-tender, non-distended, no rebound/guarding, normal bowel sounds present Musculoskeletal: normal ROM, no peripheral edema Skin: warm and dry, intact, no rashes Neuro: CN II-XII intact, no focal deficits Discharge Plan Plan Patient Disposition: HOME (Self Care) Care Plan Goals: ? You've been started on aspirin and atorvastatin to prevent further strokes ? You've been started on nifedipine to help control your blood pressure ? Continue taking all other home medications as prescribed ? Follow-up with neurologist, Dr. Mosquera, within 1-2 weeks of discharge ? Follow-up with PCP within 1-2 weeks of discharge and obtain referral for a sleep study ? Recommend referral to [facility] for further evaluation/work-up of hypertension ? Return to ED if symptoms worsen or recur Prescriptions/Referrals Prescriptions/Med Rec: New aspirin 81 mg capsule 81 mg PO QDAY 30 Days Qty: 30 0RF atorvastatin 80 mg tablet 80 mg PO QDAY 30 Days Qty: 30 0RF nifedipine 60 mg tablet extended release 60 mg PO QDAY Qty: 30 0RF Continued losartan 100 mg tablet 100 mg PO DAILY Patient Comments: TAKE 1 TABLET BY MOUTH EVERY DAY FOR 90 DAYS Referrals: No Primary/Family,Physician [Primary Care Provider] - Vasquez Mosquera MD [Physician] - Patient/Caregiver Discharge Instructions Education Materials: Discharge Instructions for ... Print Language: Amharic Stand Alone Forms: [facility] Award Info., Patient Portal Info Letter Discharge Order Discharge Orders: Discharge (Routine); Ordered 09/28/24 Ordered By: Robert Asher Quality Discharge Quality Measures VTE prophylaxis
== END 2024-09-28 12:45 | disposition home or self-care (01) | DRG 149 ==
LOC: SERX 19:23 → SERHOLD 19:53 → S2NX 21:27
PROVIDERS: Student in an Organized Health Care Education/Training Program; Admitting Provider Student in an Organized Health Care Education/Training Program; Emergency Provider Emergency Medicine; Visit Provider Internal Medicine
DX: R42 Dizziness and giddiness (principal); Z68.41 Body mass index [BMI] 40.0-44.9, adult; I16.1 Hypertensive emergency; H81.399 Other peripheral vertigo, unspecified ear; H55.09 Other forms of nystagmus; R11.2 Nausea with vomiting, unspecified; I10 Essential (primary) hypertension; E66.9 Obesity, unspecified; R73.03 Prediabetes; D50.9 Iron deficiency anemia, unspecified; Z91.148 Patient's other noncompliance with medication regimen for other reason; Z86.73 Personal history of transient ischemic attack (TIA), and cerebral infarction without residual deficits
CPT/HCPCS: 36415; 70450; 70496; 70498; 70551; 80053; 80061; 80307; 83036; 83735; 84100; 84439; 84443; 84484; 85025; 92610; 93005; 93306; 97161; 99291; A4649; J2060; J3490; J7030; Q0162; Q9967; A9270; J1920

== ENCOUNTER → 2025-01-10 | Outpatient (CLI) | payer BC, SELFPAY ==
[2025-01-10 14:50] LABS: Basophils # (Auto) 0.0 Thou/mm3 (0.0-0.2); Basophils % (Auto) 1 % (0-2.5); Eosinophils # (Auto) 0.2 Thou/mm3 (0.0-0.5); Eosinophils % (Auto) 3 % (0-10); Hematocrit 36.8 % (41.0-53.0); Hemoglobin 12.1 g/dL (13.5-16.0); Immature Granulocytes Auto 0.03 Thou/mm3 (0.00-0.00); Lymphocytes # (Auto) 1.6 Thou/mm3 (1.0-4.8); Lymphocytes % (Auto) 22 % (10-50); Mean Corpuscular HGB Conc 32.9 g/dl (31.0-37.0); Mean Corpuscular Hemoglobin 26.5 pg (25.0-35.0); Mean Corpuscular Volume 81 fL (80-100); Monocytes # (Auto) 0.4 Thou/mm3 (0.0-0.8); Monocytes % (Auto) 6 % (0-12); Neutrophils # (Auto) 4.9 Thou/mm3 (1.8-7.7); Neutrophils % (Auto) 68 % (37-80); Nucleated Red Blood Cell # 0.00 Thou/mm3 (0.00-0.00); Nucleated Red Blood Cell % 0 /100 WBC (0); Platelet Count 233 Thou/mm3 (140-440); RDW Standard Deviation 47.8 fL (35.1-43.9); Red Blood Count 4.57 Miln/mm3 (4.50-5.90); White Blood Count 7.2 Thou/mm3 (3.8-10.6)
[2025-01-10 14:56] LABS: Alanine Aminotransferase 16 U/L (10-49); Albumin, Serum 4.5 gm/dL (3.5-5.0); Albumin/Globulin Ratio 1.7 (1.2-2.2); Alkaline Phosphatase 139 U/L (46-116); Anion Gap 9 (7-16); Aspartate Amino Transferase 25 U/L (0-34); BUN/Creatinine Ratio 7 Ratio (12-20); Bilirubin,Total 0.8 mg/dL (0.3-1.2); Blood Urea Nitrogen 8 mg/dL (9-23); Calcium 9.7 mg/dL (8.3-10.6); Calcium (Corrected) 9.7 mg/dL (8.5-10.1); Carbon Dioxide 28.5 mMol/L (20.0-31.0); Chloride 106 mMol/L (98-107); Creatinine (Component) 1.2 mg/dL (0.6-1.3); Globulin 2.6 gm/dL (2.3-3.5); Glucose 95 mg/dL (74-106); Osmolality,Calculated 283 (275-295); Potassium 4.3 mMol/L (3.4-5.1); Sodium 143 mMol/L (136-145); Total Protein 7.1 gm/dL (5.7-8.2); eGFR > 60 See Note
[2025-01-10 15:12] LABS: Glucose Estimated Average 137 mg/dL (80-131); Hemoglobin A1C 6.4 % Hgb (4.8-6.0)
== END | disposition home or self-care (01) ==
PROVIDERS: PCP Family Medicine; Referring Provider Family Medicine; Visit Provider Family Medicine
DX: I63.541 Cerebral infarction due to unspecified occlusion or stenosis of right cerebellar artery (principal); H81.12 Benign paroxysmal vertigo, left ear; I10 Essential (primary) hypertension; E78.2 Mixed hyperlipidemia; E11.9 Type 2 diabetes mellitus without complications
CPT/HCPCS: 36415; 80053; 83036; 85025